=== PATIENT | female | born 1970 | race American Indian/Alaskan Native ===

== ENCOUNTER 2019-06-07 14:04 | Emergency (ER) | payer SELFPAY ==
[2019-06-07] MEDS ORDERED: ATIVAN IM PRN (14:29)
[2019-06-07] MEDS ORDERED: HALDOL IM PRN (14:29)
--- NOTE | 2019-06-07 14:30 | Emergency Department Report ---
ED General Adult HPI - General Chief complaint: Headache Stated complaint: HEADACHE Time Seen by Provider: 06/07/19 14:26 Source: patient, family, EMS (ems notes not available at time of chart dictation), RN notes reviewed, old records reviewed Mode of arrival: Stretcher Limitations: No Limitations - History of Present Illness Initial comments: This is a 49-year-old female. The patient is not known to this provider previously. 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 Patient was seen initially at this hospital, and transferred to higher level of care. Family and the bedside indicates patient was in the hospital for about a month, and in-house physical therapy, but was unable to follow up for outpatient physical therapy secondary to financial reasons. The patient presents to the ER with multiple complaints. Her first complaint is headache. The headache is frontal, right-sided, temporal and occipital. The headache has been present for a few days. The headache is not sudden or thunderclap in nature. The headache did not respond maximal intensity within an hour. It is not the most intense headache of her life. The patient reports getting headaches "every day." She indicates the headache moves to her neck. There is no vomiting, chest pain or abdominal pain or shortness of breath. She has not taken any cacu-ypm-clnropy medication for this headache. Her next complaint is suicidality. This is mostly described by her daughter, Ms. Chava Silvestre; [phone] Apparently, patient has been sending text messages on cell phones, suggesting that she may want to harm herself. The patient will not answer my questions about homicidality or suicidality. She will not answer questions about wanting to overdose. She will not answer questions about access to guns or firearms. She will not describe exacerbating or relieving factors. As per collateral information from family, patient has been somewhat disabled after her stroke, and this is very distressing to her. -: Gradual, week(s), month(s) Location: head Quality: aching Consistency: constant Improves with: none Worsens with: none - Related Data Home Medications Medication Instructions Recorded Confirmed Last Taken Amantadine [Symmetrel] 100 mg PO BID 06/07/19 06/07/19 Unknown Carvedilol [Coreg] 12.5 mg PO BIDWM 06/07/19 06/07/19 Unknown Ergocalciferol [Vitamin D2] 1 cap PO QWEEK 06/07/19 06/07/19 Unknown FLUoxetine [PROzac] 20 mg PO QAM 06/07/19 06/07/19 Unknown Lisinopril [Zestril TAB] 40 mg PO Q24H 06/07/19 06/07/19 Unknown amLODIPine [Norvasc] 10 mg PO DAILY 06/07/19 06/07/19 Unknown hydrALAZINE [Apresoline TAB] 100 mg PO BIDWM 06/07/19 06/07/19 Unknown hydroCHLOROthiazide [HCTZ] 25 mg PO QDAY 06/07/19 06/07/19 Unknown Allergies Allergy/AdvReac Type Severity Reaction Status Date / Time No Known Allergies Allergy Unverified 11/04/18 18:41 ED Review of Systems ROS: Stated complaint: HEADACHE Other details as noted in HPI Constitutional: denies: fever Eyes: denies: eye discharge ENT: denies: epistaxis Respiratory: denies: cough Cardiovascular: denies: chest pain Gastrointestinal: denies: abdominal pain Genitourinary: denies: dysuria Musculoskeletal: denies: back pain Skin: denies: lesions Neurological: headache. denies: weakness, numbness, paresthesias, confusion Psychiatric: suicidal thoughts ED Past Medical Hx - Past Medical History Previous Medical History?: Yes Hx Hypertension: Yes Hx CVA: Yes Additional medical history: STROKE - Surgical History Past Surgical History?: No - Social History Smoking Status: Never Smoker Substance Use Type: None - Medications Home Medications: Home Medications Medication Instructions Recorded Confirmed Last Taken Type Amantadine [Symmetrel] 100 mg PO BID 06/07/19 06/07/19 Unknown History Carvedilol [Coreg] 12.5 mg PO BIDWM 06/07/19 06/07/19 Unknown History Ergocalciferol [Vitamin D2] 1 cap PO QWEEK 06/07/19 06/07/19 Unknown History FLUoxetine [PROzac] 20 mg PO QAM 06/07/19 06/07/19 Unknown History Lisinopril [Zestril TAB] 40 mg PO Q24H 06/07/19 06/07/19 Unknown History amLODIPine [Norvasc] 10 mg PO DAILY 06/07/19 06/07/19 Unknown History hydrALAZINE [Apresoline TAB] 100 mg PO BIDWM 06/07/19 06/07/19 Unknown History hydroCHLOROthiazide [HCTZ] 25 mg PO QDAY 06/07/19 06/07/19 Unknown History ED Physical Exam - General Limitations: No Limitations General appearance: alert, in no apparent distress - Head Head exam: Present: atraumatic, normocephalic - Eye Eye exam: Present: normal appearance, EOMI, other (visual acuity intact to finger counting, color perception, reading at a close distance). Absent: nystagmus - ENT ENT exam: Present: normal exam, normal orophraynx, mucous membranes moist, normal external ear exam - Neck Neck exam: Present: normal inspection, full ROM. Absent: tenderness, meningismus - Respiratory Respiratory exam: Present: normal lung sounds bilaterally. Absent: respiratory distress - Cardiovascular Cardiovascular Exam: Present: regular rate, normal rhythm, normal heart sounds. Absent: bradycardia, tachycardia, irregular rhythm, systolic murmur, diastolic murmur, rubs, gallop - GI/Abdominal GI/Abdominal exam: Present: soft. Absent: distended, tenderness, guarding, rebound, rigid, pulsatile mass - Extremities Exam Extremities exam: Present: normal inspection, full ROM, other (2+ pulses noted in the bilateral upper, lower extremities. Compartments soft. No long bony tenderness. The pelvis is stable.). Absent: pedal edema, joint swelling, calf tenderness - Back Exam Back exam: Present: normal inspection, full ROM - Neurological Exam Neurological exam: Present: alert, oriented X3, normal gait (patient walks with a steady gait with a one-person assist. This is corroborated by her family.), other (Extraocular movements intact. Tongue midline. No facial droop. Facial sensation intact to light touch in the V1, V2, V3 distribution bilaterally. 5 and 5 strength in 4 extremities.. Sensation is intact to light touch in 4 extremities.). Absent: motor sensory deficit - Psychiatric Psychiatric exam: Present: depressed, flat affect - Skin Skin exam: Present: warm, dry, intact, normal color. Absent: rash ED Course Vital Signs 06/07/19 06/07/19 06/07/19 14:16 14:18 14:30 Temperature 98.5 F Pulse Rate 78 85 Respiratory 14 21 Rate Blood Pressure 154/91 145/91 O2 Sat by Pulse 89 100 100 Oximetry 06/07/19 06/07/1906/07/19 14:45 15:00 15:57 Temperature Pulse Rate 87 73 Respiratory 16 16 Rate Blood Pressure 144/90 149/86 153/86 O2 Sat by Pulse 100 100 100 Oximetry 06/07/19 06/07/19 06/07/19 16:00 16:15 16:30 Temperature Pulse Rate 70 67 66 Respiratory 10 L 15 17 Rate Blood Pressure 162/100 162/100 164/92 O2 Sat by Pulse 99 100 100 Oximetry 06/07/19 06/07/19 16:45 17:00 Temperature Pulse Rate 68 64 Respiratory 19 16 Rate Blood Pressure 162/100 172/99 O2 Sat by Pulse 100 100 Oximetry - Reevaluation(s) Reevaluation #1: 06/07/19 17:43 Differential diagnosis, including not limited to: Migraine headache, tension headache, cluster headache, chronic headache status post hemorrhagic stroke, sinus headache, disability secondary to hemorrhagic stroke, depression, mood disorder, suicidality Assessment and plan: 49-year-old female with 2 complaints Complaint #1, headache, present since October 2018. The patient is afebrile with reassuring vital signs, with no clinical indication of meningitis. She walks with a one-person assist. Her family corroborates that she is neurolo gically at her baseline. Suspect chronic headache etiology. CT scan of the brain shows no bleed, but nonspecific findings in the frontal lobe, next to a surgical site. We will obtain neurology consult for further recommendations, base of the history and physical, it is my pain the patient does not require emergent or urgent acquisition of MRI; CT scan findings are most likely secondary to old disease. Complaint #2, suicidality. Patient is placed in a 1013. Screening laboratory studies are obtained. Psychiatric consultation will be requested. Explained significance of 1013 to patient and daughter, who verbalize understanding. Nursing team has been requested to reconcile patient's medications. We will treat her headache supportively and symptomatically. Reevaluation #2: 06/07/19 17:[address] abnormalities with stroke neurology on-call, Dr. Sandy Tavarez, who has personally reviewed the patient's CT images. We are both of the opinion that the nonspecific findings are likely related to her hayden hole procedure, performed remotely. Apparently, the patient has not followed up with neurology, likely secondary to financial and presumed transportation issues. Both myself and stroke neurology agreed that patient should follow up with outpatient neurology, once she's been psychiatrically stabilized. At this point in time, the patient does not appear to have an immediate medical contraindication to psychiatric admission, evaluation, consultation and placement. The psychiatric team is paged. In addition, case management consult has been ordered. ED Medical Decision Making - Lab Data Result diagrams: 06/07/19 14:45 06/07/19 14:45 Vital Signs 06/07/19 06/07/19 06/07/19 14:16 14:18 14:30 Temperature 98.5 F Pulse Rate 78 85 Respiratory 14 21 Rate Blood Pressure 154/91 145/91 O2 Sat by Pulse 89 100 100 Oximetry 06/07/19 06/07/19 06/07/19 14:45 15:00 15:57 Temperature Pulse Rate 87 73 Respiratory 16 16 Rate Blood Pressure 144/90 149/86 153/86 O2 Sat by Pulse 100 100 100 Oximetry 06/07/19 06/07/19 06/07/19 16:00 16:15 16:30 Temperature Pulse Rate 70 67 66 Respiratory 10 L 15 17 Rate Blood Pressure 162/100 162/100 164/92 O2 Sat by Pulse 99 100 100 Oximetry 06/07/19 06/07/19 16:45 17:00 Temperature Pulse Rate 68 64 Respiratory 19 16 Rate Blood Pressure 162/100 172/99 O2 Sat by Pulse 100 100 Oximetry Lab Results 06/07/19 06/07/19 06/07/19 Range/Units 14:45 14:45 14:45 WBC (4.5-11.0) K/mm3 RBC (3.65-5.03) M/mm3 Hgb (10.1-14.3) gm/dl Hct (30.3-42.9) % MCV (79-97) fl MCH (28-32) pg MCHC (30-34) % RDW (13.2-15.2) % Plt Count (140-440) K/mm3 Lymph % (Auto) (13.4-35.0) % [place] % (Auto) (0.0-7.3) % Eos % (Auto) (0.0-4.3) % Baso % (Auto) (0.0-1.8) % Lymph # (1.2-5.4) K/mm3 [place] # (0.0-0.8) K/mm3 Eos # (0.0-0.4) K/mm3 Baso # (0.0-0.1) K/mm3 Seg Neutrophils % (40.0-70.0) % Seg Neutrophils # (1.8-7.7) K/mm3 Sodium 141 (137-145) mmol/L Potassium 3.7 (3.6-5.0) mmol/L Chloride 103.0 (98-107) mmol/L Carbon Dioxide 27 (22-30) mmol/L Anion Gap 15 mmol/L BUN 9 (7-17) mg/dL Creatinine 1.1 (0.7-1.2) mg/dL Estimated GFR > 60 ml/min BUN/Creatinine Ratio 8 % Glucose 90 (65-100) mg/dL Calcium 9.0 (8.4-10.2) mg/dL Magnesium (1.7-2.3) mg/dL Total Creatine Kinase (30-135) units/L Troponin T (0.00-0.029) ng/mL TSH (0.270-4.200) mlU/mL Urine Color (Yellow) Urine Turbidity (Clear) Urine pH (5.0-7.0) Ur Specific [place] (1.003-1.030) Urine Protein (Negative) mg/dL Urine Glucose (UA) (Negative) mg/dL Urine Ketones (Negative) mg/dL Urine Blood (Negative) Urine Nitrite (Negative) Urine Bilirubin (Negative) Urine Urobilinogen (<2.0) mg/dL Ur Leukocyte Esterase (Negative) Urine WBC (Auto) (0.0-6.0) /HPF Urine RBC (Auto) (0.0-6.0) /HPF U Epithel Cells (Auto) (0-13.0) /HPF Hyaline Casts /LPF Urine Mucus /HPF Salicylates < 0.3 L (2.8-20.0) mg/dL Urine Opiates Screen Urine Methadone Screen Acetaminophen < 5.0 L (10.0-30.0) ug/mL Ur Barbiturates Screen Ur Phencyclidine Scrn Ur Amphetamines Screen U Benzodiazepines Scrn Urine Cocaine Screen U Marijuana (THC) Screen Drugs of Abuse Note Plasma/Serum Alcohol (0-0.07) % 06/07/19 06/07/19 06/07/19 Range/Units 14:45 14:45 14:45 WBC 5.0 (4.5-11.0) K/mm3 RBC 3.71 (3.65-5.03) M/mm3 Hgb 10.4 (10.1-14.3) gm/dl Hct 30.6 (30.3-42.9) % MCV 82 (79-97) fl MCH 28 (28-32) pg MCHC 34 (30-34) % RDW 17.1 H (13.2-15.2) % Plt Count 176 (140-440) K/mm3 Lymph % (Auto) 19.4 (13.4-35.0) % [place] % (Auto) 6.6 (0.0-7.3) % Eos % (Auto) 0.7 (0.0-4.3) % Baso % (Auto) 0.9 (0.0-1.8) % Lymph # 1.0 L (1.2-5.4) K/mm3 [place] # 0.3 (0.0-0.8) K/mm3 Eos # 0.0 (0.0-0.4) K/mm3 Baso # 0.0 (0.0-0.1) K/mm3 Seg Neutrophils % 72.4 H (40.0-70.0) % Seg Neutrophils # 3.6 (1.8-7.7) K/mm3 Sodium (137-145) mmol/L Potassium (3.6-5.0) mmol/L Chloride (98-107) mmol/L Carbon Dioxide (22-30) mmol/L Anion Gap mmol/L BUN (7-17) mg/dL Creatinine (0.7-1.2) mg/dL Estimated GFR ml/min BUN/Creatinine Ratio % Glucose (65-100) mg/dL Calcium (8.4-10.2) mg/dL Magnesium 1.70 (1.7-2.3) mg/dL Total Creatine Kinase 64 (30-135) units/L Troponin T < 0.010 (0.00-0.029) ng/mL TSH (0.270-4.200) mlU/mL Urine Color (Yellow) Urine Turbidity (Clear) Urine pH (5.0-7.0) Ur Specific [place] (1.003-1.030) Urine Protein (Negative) mg/dL Urine Glucose (UA) (Negative) mg/dL Urine Ketones (Negative) mg/dL Urine Blood (Negative) Urine Nitrite (Negative) Urine Bilirubin (Negative) Urine Urobilinogen (<2.0) mg/dL Ur Leukocyte Esterase (Negative) Urine WBC (Auto) (0.0-6.0) /HPF Urine RBC (Auto) (0.0-6.0) /HPF U Epithel Cells (Auto) (0-13.0) /HPF Hyaline Casts /LPF Urine Mucus /HPF Salicylates (2.8-20.0) mg/dL Urine Opiates Screen Urine Methadone Screen Acetaminophen (10.0-30.0) ug/mL Ur Barbiturates Screen Ur Phencyclidine Scrn Ur Amphetamines Screen U Benzodiazepines Scrn Urine Cocaine Screen U Marijuana (THC) Screen Drugs of Abuse Note Plasma/Serum Alcohol < 0.01 (0-0.07) % 06/07/19 06/07/19 06/07/19 Range/Units 14:45 16:00 16:00 WBC (4.5-11.0) K/mm3 RBC (3.65-5.03) M/mm3 Hgb (10.1-14.3) gm/dl Hct (30.3-42.9) % MCV (79-97) fl MCH (28-32) pg MCHC (30-34) % RDW (13.2-15.2) % Plt Count (140-440) K/mm3 Lymph % (Auto) (13.4-35.0) % [place] % (Auto) (0.0-7.3) % Eos % (Auto) (0.0-4.3) % Baso % (Auto) (0.0-1.8) % Lymph # (1.2-5.4) K/mm3 [place] # (0.0-0.8) K/mm3 Eos # (0.0-0.4) K/mm3 Baso # (0.0-0.1) K/mm3 Seg Neutrophils % (40.0-70.0) % Seg Neutrophils # (1.8-7.7) K/mm3 Sodium (137-145) mmol/L Potassium (3.6-5.0) mmol/L Chloride (98-107) mmol/L Carbon Dioxide (22-30) mmol/L Anion Gap mmol/L BUN (7-17) mg/dL Creatinine (0.7-1.2) mg/dL Estimated GFR ml/min BUN/Creatinine Ratio % Glucose (65-100) mg/dL Calcium (8.4-10.2) mg/dL Magnesium (1.7-2.3) mg/dL Total Creatine Kinase (30-135) units/L Troponin T (0.00-0.029) ng/mL TSH 1.290 (0.270-4.200) mlU/mL Urine Color Yellow (Yellow) Urine Turbidity Clear (Clear) Urine pH 7.0 (5.0-7.0) Ur Specific [place] 1.011 (1.003-1.030) Urine Protein 30 mg/dl (Negative) mg/dL Urine Glucose (UA) Neg (Negative) mg/dL Urine Ketones Neg (Negative) mg/dL Urine Blood Neg (Negative) Urine Nitrite Neg (Negative) Urine Bilirubin Neg (Negative) Urine Urobilinogen < 2.0 (<2.0) mg/dL Ur Leukocyte Esterase Neg (Negative) Urine WBC (Auto) 1.0 (0.0-6.0) /HPF Urine RBC (Auto) 1.0 (0.0-6.0) /HPF U Epithel Cells (Auto) 1.0 (0-13.0) /HPF Hyaline Casts 6 /LPF Urine Mucus Few /HPF Salicylates (2.8-20.0) mg/dL Urine Opiates Screen Presumptive negative Urine Methadone Screen Presumptive negative Acetaminophen (10.0-30.0) ug/mL Ur Barbiturates Screen Presumptive negative Ur Phencyclidine Scrn Presumptive negative Ur Amphetamines Screen Presumptive negative U Benzodiazepines Scrn Presumptive negative Urine Cocaine Screen Presumptive negative U Marijuana (THC) Screen Presumptive negative Drugs of Abuse Note Disclamer Plasma/Serum Alcohol (0-0.07) % - Radiology Data Radiology results: report reviewed, image reviewed Print Report Referring Physician: ADDIE DE LA CRUZ Patient Name: MALLIKA BOLTON Date of : 1970 Sex: Female Report Date: 2019-06-07 Report Status: Finalized Findings [facility] [address] [place] [address] Cat Scan Report Signed Patient: MALLIKA BOLTON MR#: [id number] : 1970 Acct:[id number] Age/Sex: 49 / F ADM Date: 06/07/19 Loc: ED Attending Dr: Ordering Physician: ADDIE DE LA CRUZ MD Date of Service: 06/07/19 Procedure(s): CT head/brain wo con Accession Number(s): [id number] cc: ADDIE DE LA CRUZ MD CT HEAD WITHOUT CONTRAST INDICATION / CLINICAL INFORMATION: Cerebrovascular accident. Generalized weakness. History of remote infarction and remote intracranial hemorrhage. TECHNIQUE: All CT scans at this location are performed using CT dose reduction for ALARA by means of automated exposure control. COMPARISON: Head CT 11/04/2018 and 01/01/2010. MRI brain dated 01/02/2010. FINDINGS: HEMORRHAGE: No evidence of intracranial hemorrhage or extra-axial fluid collection. EXTRA-AXIAL SPACES: Cortical sulci and sylvian fissures are enlarged reflecting a degree of parenchymal volume loss which is greater than expected for the patient's age 49. Basilar cisterns have an unremarkable appearance. VENTRICULAR SYSTEM: The third and lateral ventricles are enlarged reflecting resonance of age related parenchymal volume loss. CEREBRAL PARENCHYMA: Periventricular and deep white matter lucency is observed. This is probably secondary to advanced microvascular ischemic change which is greater than expected for age 49 years. Focal areas of decreased attenuation are noted in both cerebral hemispheres consistent with prior infarction. There is a focal area of decreased attenuation seen along the anterior margin of the right frontal lobe in a watershed distribution between the anterior and middle cerebral arteries. This is a new finding which could represent an area of age indeterminate infarction. However, there is evidence of an adjacent hayden hole a defect in the right frontal bone. Correlation with surgical history is advised. Correlation with magnetic resonance imaging is advised. On previous study there is a large left thalamic hematoma with intraventricular extension. A small area of encephalomalacia seen at the site of the prior left thalamic bleed. There is no indication of recent hemorrhage. MIDLINE SHIFT OR HERNIATION: There is no mass effect. CEREBELLUM / BRAINSTEM: Brainstem and cerebellum have an unremarkable appearance. INTRACRANIAL VESSELS:Calcified atherosclerotic plaque is present along the course of the cavernous segments of both internal carotid arteries. ORBITS: visualized portions of the orbits have an unremarkable appearance. SOFT TISSUES of HEAD: No significant abnormality. CALVARIUM: Evaluation of bone windows is remarkable for small defect in the right frontal bone which could be a small hayden hole defect. Correlation with surgical history, if any, is suggested. This is a new finding compared to 11/04/2018. PARANASAL SINUSES / MASTOID AIR CELLS: Paranasal sinuses are free from inflammatory mucosal disease. Mastoid air cells are normally pneumatized. IMPRESSION: 1. A new area of decreased attenuation is observed in the right frontal lobe as described above. There may be an adjacent small hayden hole defect in the frontal bone. Correlation with surgical history is advised. In the absence of history of surgery follow-up study with MRI brain without and with contrast is suggested. Signer Name: Mario Gandara MD Signed: 06/07/2019 4:30 PM Workstation Name: [id number] Transcribed By: Dictated By: Mario Gandara MD Electronically Authenticated By: Mario Gandara MD Signed Date/Time: 06/07/19 1630 Critical care attestation.: If time is entered above; I have spent that time in minutes in the direct care of this critically ill patient, excluding procedure time. ED Disposition Clinical Impression: History of stroke, Hypertension, Chronic headache, Medical clearance for psychiatric admission Disposition: [id number]/TX-65 PSY HOSP/PSY UNIT Is pt being admited?: No Does the pt Need Aspirin: No Condition: Good Instructions: Hypertension (ED) Referrals: MARICARMEN ZAVALA MD [Primary Care Provider] - 3-5 Days
[2019-06-07 15:01] LABS: Basophils % (Auto) 0.9 % (0.0-1.8); Eosinophils % (Auto) 0.7 % (0.0-4.3); Hematocrit 30.6 % (30.3-42.9); Hemoglobin 10.4 gm/dl (10.1-14.3); Lymphocytes % (Auto) 19.4 % (13.4-35.0); Mean Corpuscular HGB Conc 34 % (30-34); Mean Corpuscular Volume 82 fl (79-97); Monocytes # (Auto) 0.3 K/mm3 (0.0-0.8); Monocytes % (Auto) 6.6 % (0.0-7.3); Platelet Count 176 K/mm3 (140-440); Red Blood Count 3.71 M/mm3 (3.65-5.03); Red Cell Distribution Width 17.1 % (13.2-15.2)
[2019-06-07 15:21] LABS: BUN/Creatinine Ratio 8; Blood Urea Nitrogen 9 mg/dL (7-17); Hemolysis Index 5
[2019-06-07 16:22] LABS: Bilirubin,Urine NEG (Negative); Blood,Urine NEG (Negative); Color,Urine Yellow (Yellow); Hyaline Casts,Urine 6 /LPF; Mucus,Urine FEW /HPF; Urobilinogen,Urine < 2.0 mg/dL (<2.0)
[2019-06-07 16:31] LABS: Amphetamine Screen,Urine PRESUMPTIVE NEGATIVE; Benzodiazepines Screen,Urine PRESUMPTIVE NEGATIVE; Cannabinoid Screen,Urine PRESUMPTIVE NEGATIVE; Cocaine Screen,Urine PRESUMPTIVE NEGATIVE; Methadone Screen,Urine PRESUMPTIVE NEGATIVE; Opiate Screen,Urine PRESUMPTIVE NEGATIVE
--- NOTE | 2019-06-07 16:34 | Cat Scan Report ---
CT HEAD WITHOUT CONTRAST INDICATION / CLINICAL INFORMATION: Cerebrovascular accident. Generalized weakness. History of remote infarction and remote intracranial hemorrhage. TECHNIQUE: All CT scans at this location are performed using CT dose reduction for ALARA by means of automated e xposure control. COMPARISON: Head CT 11/04/2018 and 01/01/2010. MRI brain dated 01/02/2010. FINDINGS: HEMORRHAGE: No evidence of intracranial hemorrhage or extra-axial fluid collection. EXTRA-AXIAL SPACES: Cortical sulci and sylvian fissures are enlarged reflecting a degree of parenchym al volume loss which is greater than expected for the patient's age 49. Basilar cisterns have an unre markable appearance. VENTRICULAR SYSTEM: The third and lateral ventricles are enlarged reflecting resonance of age related parenchymal volume loss. CEREBRAL PARENCHYMA: Periventricular and deep white matter lucency is observed. This is probably seco ndary to advanced microvascular ischemic change which is greater than expected for age 49 years. Foca l areas of decreased attenuation are noted in both cerebral hemispheres consistent with prior infarct ion. There is a focal area of decreased attenuation seen along the anterior margin of the right front al lobe in a watershed distribution between the anterior and middle cerebral arteries. This is a new finding which could represent an area of age indeterminate infarction. However, there is evidence of an adjacent hayden hole a defect in the right frontal bone. Correlation with surgical history is advise d. Correlation with magnetic resonance imaging is advised. On previous study there is a large left th alamic hematoma with intraventricular extension. A small area of encephalomalacia seen at the site of the prior left thalamic bleed. There is no indication of recent hemorrhage. MIDLINE SHIFT OR HERNIATION: There is no mass effect. CEREBELLUM / BRAINSTEM: Brainstem and cerebellum have an unremarkable appearance. INTRACRANIAL VESSELS:Calcified atherosclerotic plaque is present along the course of the cavernous se gments of both internal carotid arteries. ORBITS: visualized portions of the orbits have an unremarkable appearance. SOFT TISSUES of HEAD: No significant abnormality. CALVARIUM: Evaluation of bone windows is remarkable for small defect in the right frontal bone which could be a small hayden hole defect. Correlation with surgical history, if any, is suggested. This is a new finding compared to 11/04/2018. PARANASAL SINUSES / MASTOID AIR CELLS: Paranasal sinuses are free from inflammatory mucosal disease. Mastoid air cells are normally pneumatized. IMPRESSION: 1. A new area of decreased attenuation is observed in the right frontal lobe as described above. Ther e may be an adjacent small hayden hole defect in the frontal bone. Correlation with surgical history is advised. In the absence of history of surgery follow-up study with MRI brain without and with contra st is suggested. Signer Name: Mario Gandara MD Signed: 06/07/2019 4:30 PM Workstation Name: [id number]
[2019-06-07] MEDS ORDERED: XYLOCAINE TOPICAL 4% TP ONE (16:45)
[2019-06-07] MEDS ORDERED: FIORICET PO ONE (16:45)
[2019-06-07] MEDS ORDERED: REGLAN IV ONE (16:45)
[2019-06-07] MEDS ORDERED: REGLAN PO ONE (16:46)
[2019-06-07] MEDS ORDERED: FIORICET PO PRN (19:24)
[2019-06-07] MEDS ORDERED: REGLAN PO PRN (19:24)
[2019-06-07] MEDS: APRESOLINE PO SCH (19:33)
[2019-06-07] MEDS: NORVASC PO SCH (19:34)
[2019-06-07] MEDS: HCTZ PO SCH (19:34)
[2019-06-07] MEDS: ZESTRIL PO SCH (19:52)
[2019-06-07] MEDS: COREG PO SCH (19:52)
[2019-06-08] MEDS: SYMMETREL PO SCH ×3 (01:32→22:00)
[2019-06-08] MEDS: PROzac PO SCH (10:12)
[2019-06-08] MEDS: APRESOLINE PO SCH ×2 (10:14→22:00)
[2019-06-08] MEDS: NORVASC PO SCH (10:16)
[2019-06-08] MEDS: COREG PO SCH ×2 (10:18→20:00)
[2019-06-08] MEDS: HCTZ PO SCH (10:58)
[2019-06-08] MEDS: ZESTRIL PO SCH (20:16)
[2019-06-09] MEDS: APRESOLINE PO SCH ×2 (10:45→21:50)
[2019-06-09] MEDS: PROzac PO SCH (10:46)
[2019-06-09] MEDS: COREG PO SCH ×2 (10:46→21:50)
[2019-06-09] MEDS: HCTZ PO SCH (10:46)
[2019-06-09] MEDS: SYMMETREL PO SCH ×2 (10:46→21:50)
[2019-06-09] MEDS: NORVASC PO SCH (10:46)
--- NOTE | 2019-06-09 16:21 | Consultation ---
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 She was discharged from rehabilitation services a few months ago. 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 Chava reports her mother has been sending messages asking her to "figure out a way to peacefully" and other messages with a theme of . Ms. Caballero reports being depressed and misses her sister who 2 years ago. Chava states her mother's doctor told them she has early signs of dementia. In the last month, she has been forgetting people and forgets where she is. She went to a close family member's house and forgot where she was. She wandered away from home and was found on her neighbor's door step crying. She has not spoken to this neighbor in years due to a disagreement. Chava says her mother was very independent and seems depressed about relying on her family for help since the stroke. Ms. Caballero told the powerhouse helper she is "miserable" and contemplating suicide since discharge from rehab a few months ago. She refused to elaborate in regards to her daughters allegations and offered no additional social or medical history. --DRAFTER TOPOGRAPHICAL attempted to gather the same information and she denied having any problems except depression. Medications and Allergies Allergies Allergy/AdvReac Type Severity Reaction Status Date / Time No Known Allergies Allergy Unverified 11/04/18 18:41 Home Medications Medication Instructions Recorded Confirmed Last Taken Type Amantadine [Symmetrel] 100 mg PO BID 06/07/19 06/07/19 Unknown History Carvedilol [Coreg] 12.5 mg PO BIDWM 06/07/19 06/07/19 Unknown History Ergocalciferol [Vitamin D2] 1 cap PO QWEEK 06/07/19 06/07/19 Unknown History FLUoxetine [PROzac] 20 mg PO QAM 06/07/19 06/07/19 Unknown History Lisinopril [Zestril TAB] 40 mg PO Q24H 06/07/19 06/07/19 Unknown History amLODIPine [Norvasc] 10 mg PO DAILY 06/07/19 06/07/19 Unknown History hydrALAZINE [Apresoline TAB] 100 mg PO BIDWM 06/07/19 06/07/19 Unknown History hydroCHLOROthiazide [HCTZ] 25 mg PO QDAY 06/07/19 06/07/19 Unknown History Active Meds: Active Medications Acetaminophen/Butalbital/Caffeine (Fioricet) 1 tab PO Q6HR PRN PRN Reason: Headache Amantadine HCl (Symmetrel) 100 mg PO BID [facility] Last Admin: 06/09/19 10:46 Dose: 100 mg Documented by: Amlodipine Besylate (Norvasc) 10 mg PO DAILY [facility] Last Admin: 06/09/19 10:46 Dose: 10 mg Documented by: Carvedilol (Coreg) 12.5 mg PO BID [facility] Last Admin: 06/09/19 10:46 Dose: 12.5 mg Documented by: Ergocalciferol (Vitamin D2) 50,000 unit PO [facility] Fluoxetine HCl (Prozac) 20 mg PO QAM [facility] Last Admin: 06/09/19 10:46 Dose: 20 mg Documented by: Haloperidol Lactate (Haldol) 5 mg IM Q6HR PRN PRN Reason: Agitation Hydralazine HCl (Apresoline) 100 mg PO BID [facility] Last Admin: 06/09/19 10:45 Dose: 100 mg Documented by: Hydrochlorothiazide (Hctz) 25 mg PO QDAY [facility] Last Admin: 06/09/19 10:46 Dose: 25 mg Documented by: Lisinopril (Zestril) 40 mg PO Q24H [facility] Last Admin: 06/08/19 20:16 Dose: Not Given Documented by: Lorazepam (Ativan) 2 mg IM Q4HR PRN PRN Reason: Agitation Metoclopramide HCl (Reglan) 10 mg PO Q6HR PRN PRN Reason: Nausea Past psychiatric history - Past Medical History Past Medical History: other (hemorrhagic stroke 10/2018) - past Psychiatric treatment and history Psych: Depression psychiatric treatment history: on prozac since the stroke - Social History Social history: lives with family (lives with 25 yo and 19 yo daughters) Mental Status Exam - Vital signs Last Vital Signs Temp 98.1 F 06/09/19 13:29 Pulse 70 06/09/19 13:29 Resp 18 06/09/19 13:29 BP 116/70 06/09/19 13:29 Pulse Ox 99 06/09/19 13:29 - Exam Orientation: time, place, person Affect: depressed Mood: congruent with affect, anxious Thought content: other (denies SI/HI) Thought Process: Circumstantial (limited in scope) Perceptions: none Speech: normal rate and pattern Concentration: distractible Motor activity: restless Level of consciousness: alert Memory: Recent Impaired (would not cooperate with MMSE) Sleep Symptoms: Difficulty Falling Asleep Appetite: decreased Interaction: irritable Results Result Diagrams: 06/07/19 14:45 06/07/19 14:45 All other labs normal. 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 continue prozac per home med (SSRI given after stroke) dispo: inpatient psychiatric facility staffed with Dr. Downey
[2019-06-09] MEDS: ZESTRIL PO SCH (19:00)
--- NOTE | 2019-06-09 19:09 | Progress Note ---
Subjective - Reason for Consult Consult date: 06/09/19 Reason for consult: follow up - Chief Complaint Chief complaint: "It's my kids." 49 year old female brought in by EMS complaining of headache, dizziness, weakness and blurred vision.She had a hemorrhagic stroke in October 2018 requiring hayden hole. She was discharged from rehabilitation services a few months ago. 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 Chava reports her mother has been sending messages asking her to "figure out a way to peacefully" and other messages with a theme of . Ms. Caballero reports being depressed and misses her sister who 2 years ago. Chava states her mother's doctor told them she has early signs of dementia. In the last month, she has been forgetting people and forgets where she is. Her nurse states she has wandered out of her room and had to be redirected. Ms. Caballero did not recall the conversation we had yesterday. She says her children are the problem. She asked where they are. Mental Status Exam - Exam Orientation: time, person Affect: depressed Mood: congruent with affect, anxious Thought content: other (denies SI/HI) Thought Process: Circumstantial (limited in scope) Perceptions: none Speech: normal rate and pattern Concentration: distractible Motor activity: restless Level of consciousness: alert Memory: Recent Impaired (would not cooperate with MMSE) Sleep Symptoms: Difficulty Falling Asleep Appetite: decreased Interaction: irritable Assessment and Plan Assessment and plan: Impression: major depressive disorder, single episode mild-moderate cognitive impairment diff dx: dementia w/behavioral disturbance, psychosis unspecified, 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 continue prozac per home med (SSRI given after stroke) dispo: inpatient psychiatric facility. It is unclear what services she might be eligible for considering her recent stroke. Case management is recommended. staffed with Dr. Downey Mental Status Exam - Vital signs Last Vital Signs Temp 98.1 F 06/09/19 13:29 Pulse 70 06/09/19 13:29 Resp 18 06/09/19 13:29 BP 116/70 06/09/19 13:29 Pulse Ox 99 06/09/19 13:29
[2019-06-10] MEDS: APRESOLINE PO SCH ×2 (10:25→22:23)
[2019-06-10] MEDS: HCTZ PO SCH (10:25)
[2019-06-10] MEDS: COREG PO SCH ×2 (10:25→22:23)
[2019-06-10] MEDS: NORVASC PO SCH (10:25)
[2019-06-10] MEDS: SYMMETREL PO SCH ×2 (10:26→22:23)
[2019-06-10] MEDS: PROzac PO SCH (10:26)
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
[2019-06-10] MEDS: ZESTRIL PO SCH (19:34)
--- NOTE | 2019-06-11 10:49 | Progress Note ---
Subjective - Reason for Consult Consult date: 06/11/19 Reason for consult: Psychiatry Follow-up - Chief Complaint Chief complaint: "Hello" 49 year old female brought in by EMS complaining of headache, dizziness, weakness and blurred vision. She had a hemorrhagic stroke in October 2018 requiring hayden hole. Today the patient was calm and cooperative during the assessment. The patient was more engaging this morning. She was observed completeing her ADL's. Per collateral information from the patient's daughter Sandra Caballero at [phone], she stated that her mother "memory lost and depression" started after she had the stroke. She stated that her mother was independent prior to the stroke. She stated that her mother reside with other family members (2 sisters). She stated that her mother do not have any medical insurance at this time (Medicaid pending). She asked for a referral to outpatient psy services once her mother is discharged. The patient denies SI/HI's and AVH's. No indications of side effects from her medications. Mental Status Exam - Vital signs Last Vital Signs Temp 98.2 F 06/11/19 09:55 Pulse 80 06/11/19 09:55 Resp 18 06/11/19 09:55 BP 158/91 06/11/19 09:55 Pulse Ox 97 06/11/19 09:55 - Exam Narrative exam: MSE: Appearance: calm, cooperative Behavior: regular eye contact Speech: regular rate and tone Mood: "okay" Affect: congruent to mood Thought Process: circumstantial Thought Content: denies SI/HI's and AVH's Motor Activity: sitting up in bed Cognition: A/O x3 Insight: variable to fair Judgment: fair Assessment and Plan Impression: MDD, Single Episode. Mild-Moderate Neuro Cog DO. Today the patient was calm and cooperative during the assessment. DDx: R/O Dementia, depressive DO secondary to medical condition (stroke) Recommendation/Plan: Rescind 1013. Continue Prozac 20 mg PO daily fro depression. Discussed possible suicidality with the patient reference Prozac. Recommend an outpatient referral for neurology. Case Mgmt involvement, the patient may need home care services. Dispo: The patient can follow up with [facility] for outpatient psy services. Staffed with Dr. Robel Downey.
[2019-06-11] MEDS: COREG PO SCH (11:08)
[2019-06-11] MEDS: PROzac PO SCH (11:08)
[2019-06-11] MEDS: HCTZ PO SCH (11:08)
[2019-06-11] MEDS: NORVASC PO SCH (11:08)
[2019-06-11] MEDS: APRESOLINE PO SCH (11:08)
[2019-06-11] MEDS: SYMMETREL PO SCH (11:09)
[2019-06-11] MEDS: ZESTRIL PO SCH (18:54)
[2019-06-11 19:12] VITALS: BP 143/85
[2019-06-14] MEDS ORDERED: VITAMIN D2 PO SCH (10:00)
== END 2019-06-11 19:00 ==
LOC: ED 14:04 → EEVIPCON 14:04 → ED 06-11 19:00
DX: F32.9 Major depressive disorder, single episode, unspecified (principal); R51 Headache; I10 Essential (primary) hypertension; Z86.73 Personal history of transient ischemic attack (TIA), and cerebral infarction without residual deficits; Z79.899 Other long term (current) drug therapy
CPT/HCPCS: 36415; 70450; 80048; 80307; 80320; 81001; 82550; 83735; 84443; 84484; 85025; G0480